=== PATIENT | female | born 1985 | race Caucasian/White ===

== ENCOUNTER → 2023-08-05 | Emergency (ER) | payer BC ==
[~2023-08-05] VITALS: Ht 170.2 cm; Wt 72.6 kg
[~2023-08-05] MED LIST: CEPH500C2 PO; CEPHALEXIN MONOHYDRATE 500 MG CAPSULE PO ONE
[2023-08-05 14:59] VITALS: BP 127/75; TEMP 98.1; O2SAT 100
[2023-08-05] MEDS: CEPHALEXIN MONOHYDRATE 500 MG CAPSULE PO ONE (15:04)
== END | disposition home or self-care (01) ==
LOC: ER 19:20 → EDBD 19:20
DX: L03.116 Cellulitis of left lower limb (principal)